=== PATIENT | male | born 1960 | race Two or more races ===

== ENCOUNTER 2020-01-30 13:54 | Inpatient (IN) | payer OTHER ==
[~2020-01-30] VITALS: Ht 157.5 cm; Wt 81.6 kg
[~2020-01-30 13:54] MED LIST: ENAL20TA8 PO; SIMV10TA84
[2020-01-30 14:27] LABS: Basophils # (auto) 0 10 ^3/uL (0-0.2); Basophils % (auto) 0.6 % (0.0-2.0); Eosinophils # (auto) 0 10 ^3/uL (0-0.8); Eosinophils % (auto) 0.5 % (0.0-7.0); Hematocrit 41.2 % (41.0-53.0); Hemoglobin 14.4 g/dL (13.5-17.5); Lymphocytes # (auto) 1.3 10 ^3/uL (0.4-5.4); Lymphocytes % (auto) 20.4 % (10.0-50.0); Mean Corpuscular Hemoglobin 30.8 pg (28.0-32.0); Mean Corpuscular Hgb Conc. 34.9 g/dL (32.0-36.0); Mean Corpuscular Volume 88.4 fL (80.0-100.0); Monocytes # (auto) 0.4 10 ^3/uL (0-1.3); Neutrophils # (auto) 4.8 10 ^3/uL (1.6-8.6); Neutrophils % (auto) 72.5 % (37.0-80.0); Platelet Count (auto) 292 10^3/uL (140-450); Red Blood Cells 4.66 10^6/uL (4.5-5.90); Red Cell Distribution Width 14.6 % (11.8-14.3); White Blood Cell 6.6 10^3/uL (4.4-10.8)
[2020-01-30 14:42] LABS: INR 1.06 (0.9-1.15); Partial Thromboplastin Time 25.2 sec (23.0-31.2)
[2020-01-30 14:51] LABS: Albumin 4.1 g/dL (3.4-5.0); Anion Gap 5 (5-15); Blood Urea Nitrogen 14 mg/dL (7-18); Calcium 9.2 mg/dL (8.5-10.1); Carbon Dioxide 23 mmol/L (21-32); Chloride 107 mmol/L (98-107); Glucose 144 mg/dL (74-106); Potassium 4.1 mmol/L (3.5-5.1); Sodium 135 mmol/L (136-145)
[2020-01-30 14:55] LABS: Alanine Aminotransferase 48 U/L (16-61); Alkaline Phosphatase 166 U/L (45-117); Aspartate Aminotransferase 25 U/L (15-37); Bilirubin, Total 0.4 mg/dL (0.2-1.0); GFR African American 140 mL/min; GFR Non-African American 115 mL/min; Total Protein 7.6 g/dL (6.4-8.2)
[2020-01-30 15:13] LABS: BUN/Creatinine Ratio 18.9
[2020-01-30] MEDS ORDERED: ASPirin 325 MG TAB PO ONE (15:30)
[2020-01-30] MEDS ORDERED: MORPHINE SULF INJ 2 MG/ML SYRINGE 1ML IV PRN ×3 (15:45→19:15)
[2020-01-30] MEDS ORDERED: NITROGLYCERIN 0.4 MG SL TAB SL PRN ×2 (15:45→19:15)
[2020-01-30] MEDS ORDERED: CETI10TA80 PO (16:22)
[2020-01-30] MEDS ORDERED: OMEP-260 PO (16:22)
[2020-01-30] MEDS ORDERED: MULT-928 PO (16:22)
[2020-01-30] MEDS ORDERED: ACET-1304 PO (16:22)
[2020-01-30] MEDS ORDERED: ATOR40TA52 PO (16:22)
[2020-01-30] MEDS ORDERED: METF-370 PO (16:22)
[2020-01-30] MEDS ORDERED: ASPI-498 PO (16:22)
[2020-01-30] MEDS ORDERED: CHOL20007 PO (16:22)
[2020-01-30] MEDS ORDERED: SODIUM CHLORIDE 0.9% 1,000 ML IV SCH (18:45)
[2020-01-30] MEDS ORDERED: ATORVASTATIN 20 MG TAB PO ONE (18:45)
[2020-01-30] MEDS ORDERED: ALUM & MAG HYDROX-SIMETH LIQ(MAALOX) 30 ML PO PRN (19:15)
[2020-01-30] MEDS ORDERED: ACETAMINOPHEN 325 MG TAB PO PRN (19:15)
[2020-01-30] MEDS ORDERED: HYDROcodone-ACET 5/325MG TAB PO PRN (19:15)
[2020-01-30] MEDS ORDERED: DOCUSATE SOD 100 MG CAP PO PRN (19:15)
[2020-01-30] MEDS ORDERED: ONDANSETRON HCL 4 MG/2 ML VIAL IV PRN (19:15)
[2020-01-30] MEDS ORDERED: LORazepam 0.5 MG TAB PO PRN (19:15)
[2020-01-30] MEDS ORDERED: DEXTROSE (50%) 50ML SYRG IV PRN (19:15)
[2020-01-30] MEDS: SODIUM CHLORIDE 0.9% 1,000 ML IV SCH (20:38)
[2020-01-30 20:45] LABS: Cholesterol 279 mg/dL (< 200)
[2020-01-30 20:51] LABS: HDL Cholesterol 41 mg/dL (40-59); LDL Cholesterol 220 mg/dL (< 100); Triglycerides 189 mg/dL (< 150)
--- NOTE | 2020-01-30 21:10 | NUR ---
Telemetry admit from [facility] admitted to Telemetry unit after SBAR received. Patient oriented to JULIO CESAR PALOMINO RN primary RN, unit, room, bed, and unit policies regarding patient care and visiting hours. Patient now on continuous telemetry monitoring, tele box #[id number] and telemetry reading on arrival to unit is Sinus Rhythm. Patient placed on bedside oxygen, weighed by bedscale and encouraged to call if they need something. All questions and concerns addressed, patient verbalized understanding.
[2020-01-30 22:00] VITALS: BP 143/77
[2020-01-30] MEDS ORDERED: InsuLIN REG 1unit/0.01ml Soln (100units/ml) SC SCH (22:00)
[2020-01-30] MEDS: ACCU-CHEK COMFORT CURVE STRIP VI SCH (22:24)
[2020-01-30] MEDS: FAMOTIDINE 20 MG TAB PO SCH (22:41)
[2020-01-31 00:05] VITALS: BP 143/77
[2020-01-31 05:00] VITALS: BP 135/81
[2020-01-31] MEDS: ACCU-CHEK COMFORT CURVE STRIP VI SCH ×3 (06:09→17:08)
[2020-01-31] MEDS: InsuLIN REG 1unit/0.01ml Soln (100units/ml) SC SCH ×3 (06:09→17:10)
--- NOTE | 2020-01-31 07:50 | NUR ---
Respiratory note: PT NOT ON CPAP AT THIS TIME. HR 79, RR 16, SPO2 95% ON RA, BS CLEAR.NO SIGNS OR SYMPTOMS OF RESPIRATORY DISTRESS NOTED AT THIS TIME. PT STATES HE DOES NOT WANT TO WEAR THE CPAP AT NOC MACHINE. HE ALSO SAID HE HAS ONE AT HOME BUT NEVER WEARS IT.
[2020-01-31 07:51] LABS: Urine WBC None Seen /hpf (0 - 3)
[2020-01-31 08:03] LABS: Urine Bacteria NONE SEEN /hpf (None Seen); Urine Blood Negative /uL (Negative); Urine Hyaline Cast FEW /lpf (0 - 2); Urine Specific Gravity 1.005 (1.001-1.035)
[2020-01-31 08:24] LABS: Alcohol, Urine < 3.0 mg/dL (0-10); Barbiturate Scree,Urine NEGATIVE (NEGATIVE); Benzodiazephine Screen, Urine NEGATIVE (NEGATIVE); Cannabinoid Screen, Urine NEGATIVE (NEGATIVE); Cocaine Screen, Urine NEGATIVE (NEGATIVE)
[2020-01-31 08:26] LABS: Amphetamine Screen, Urine NEGATIVE (NEGATIVE); Opiate Scree,Urine NEGATIVE (NEGATIVE); Phencyclidine Screen, Urine NEGATIVE (NEGATIVE)
[2020-01-31 09:00] VITALS: BP 155/97
[2020-01-31] MEDS ORDERED: ASPirin 81 mg TAB PO SCH (10:00)
[2020-01-31] MEDS ORDERED: CHOLECALCIFEROL (VITD3) 2,000 UNIT CAP PO SCH (10:00)
[2020-01-31] MEDS ORDERED: ENOXAPARIN SOD 40 MG/0.4 ML SYRINGE SC SCH (10:00)
[2020-01-31] MEDS ORDERED: CITALOPRAM HYDROBR 20 MG TAB PO SCH (10:00)
[2020-01-31] MEDS ORDERED: ENALAPRIL MALEATE 10 MG TAB PO SCH (10:00)
[2020-01-31] MEDS ORDERED: CLOPIDOGREL BISULFATE 75 MG TAB PO SCH (10:00)
[2020-01-31] MEDS: FAMOTIDINE 20 MG TAB PO SCH (10:32)
[2020-01-31 13:00] VITALS: BP 140/83
[2020-01-31] MEDS: SODIUM CHLORIDE 0.9% 1,000 ML IV SCH (13:07)
[2020-01-31] MEDS ORDERED: CLOP75TA28 PO (13:52)
[2020-01-31] MEDS ORDERED: PANT40TA2 PO (13:52)
[2020-01-31 15:41] VITALS: BP 155/97
[2020-01-31 16:59] VITALS: BP 131/80
--- NOTE | 2020-01-31 18:30 | NUR ---
Discharge instructions given as ordered. Encourage to follow up with PMD (Follow up with Dr. mello Mena in 1-2 weeks Address : [address], [place]) as instructed. All questions and concerns addressed. Patient verbalized understanding. Medication reconciliation form completed and copy given to patient. Home medications held in Pharmacy returned to patient, and needed vaccines given. IV removed with catheter intact, pressure dressing applied. Telemetry unit returned to ICU. Patient taken to vehicle via wheelchair with all personal belongings, accompanied by staff and family member. No distress noted at time of departure.
[2020-01-31] MEDS ORDERED: ATORVASTATIN 20 MG TAB PO SCH (22:00)
== END 2020-01-31 18:36 | disposition home or self-care (01) | DRG 45 ==
LOC: ER 13:54 → TELE 13:55 → TELE-WESTW 21:10
PROVIDERS: ADMIT Nurse Practitioner Acute Care; ATTEND Internal Medicine
DX: I63.9 Cerebral infarction, unspecified (principal); E66.01 Morbid (severe) obesity due to excess calories; Z68.32 Body mass index [BMI] 32.0-32.9, adult; I10 Essential (primary) hypertension; E78.5 Hyperlipidemia, unspecified; G81.94 Hemiplegia, unspecified affecting left nondominant side; E11.65 Type 2 diabetes mellitus with hyperglycemia; K21.9 Gastro-esophageal reflux disease without esophagitis; F32.9 Major depressive disorder, single episode, unspecified; F41.9 Anxiety disorder, unspecified; G47.33 Obstructive sleep apnea (adult) (pediatric); E11.9 Type 2 diabetes mellitus without complications; K29.70 Gastritis, unspecified, without bleeding; Z83.3 Family history of diabetes mellitus; Z85.46 Personal history of malignant neoplasm of prostate; Z91.81 History of falling; Z79.84 Long term (current) use of oral hypoglycemic drugs; Z79.4 Long term (current) use of insulin; Z79.02 Long term (current) use of antithrombotics/antiplatelets; Z79.899 Other long term (current) drug therapy; Z79.82 Long term (current) use of aspirin; Z82.49 Family history of ischemic heart disease and other diseases of the circulatory system
CPT/HCPCS: 36415; 70450; 70551; 71045; 80053; 80061; 80307; 81001; 82962; 83036; 84484; 85025; 85610; 85730; 87040; 87086; 93306; 93886; 94660; 94762; 96360; 96361; 99291; G0378; J1815